=== PATIENT | female | born 1985 | race Caucasian/White ===

== ENCOUNTER 2017-09-14 20:25 | Emergency (ER) | payer BC ==
[2017-09-14 20:48] VITALS: BP 106/63
[2017-09-14] MEDS ORDERED: Ondansetron 4 MG Tab.DIS PO ONE (20:59)
--- NOTE | 2017-09-14 20:59 | EDM.PDOC ---
ED HPI GENERAL MEDICAL PROBLEM - General Chief Complaint: Abdominal Pain Stated Complaint: RT ABDOMINAL PAIN Time Seen by Provider: 09/14/17 20:51 - History of Present Illness INITIAL COMMENTS - FREE TEXT/NARRATIVE: HISTORY AND PHYSICAL: History of present illness: The patient is a 31-year-old female with no stated medical problems who presents with complaints of right-sided lower back and abdominal pain that started 2 days ago. She says very dull it's not sharp and she is able to eat or drink she has had no associated fevers. She has had no trauma to the area and she's been having normal bowel movements until today when she had 3 small episodes of loose stools. Yesterday she had urinary frequency and discomfort with urination but that has improved today. She has had a UTI when she was in the past but none since she has never had kidney stones. She says she didn't have an appetite today due to some nausea but she has not actually vomited. Review of systems: As per history of present illness and below otherwise all systems reviewed and negative. Past medical history: As per history of present illness and as reviewed below otherwise noncontributory. Surgical history: As per history of present illness and as reviewed below otherwise noncontributory. Social history: No reported history of drug or alcohol abuse. Family history: As per history of present illness and as reviewed below otherwise noncontributory. Physical exam: Gen.: Well-developed well-nourished female who is nontoxic and speaking clearly and easily in the ED. Vital signs are noted by me HEENT: Atraumatic, normocephalic,negative for conjunctival pallor or scleral icterus, mucous membranes moist, throat clear, neck supple, nontender, trachea midline. Lungs: Clear to auscultation, breath sounds equal bilaterally, chest nontender. Heart: S1S2, regular rate and rhythm no overt murmurs Abdomen: Soft, nondistended, nontender. Negative for masses or hepatosplenomegaly. Cannot elicit much pain on palpation and there is no rebound or guarding; there is a minimal amount of pain on very deep palpation in the right upper quadrant Negative for costovertebral tenderness. Pelvis: Stable nontender. Genitourinary: Deferred. Rectal: Deferred. Extremities: Atraumatic, negative for cords or calf pain. Neurovascular unremarkable. Neuro: Awake, alert, oriented. Cranial nerves II through XII unremarkable. Cerebellum unremarkable. Motor and sensory unremarkable throughout. Exam nonfocal. Diagnostics: CBC CMP amylase lipase UA UCG urine culture if indicated Therapeutics: Lilianmario I discussed with the patient all testing results and did offer imaging but we both agreed that at this point her symptoms are very mild and she would like to defer that at this time. I told her to monitor her symptoms and if they progress change or evolve that she can come back to the ER for further care. I also will refer her back to the clinic. Impression: Left-sided abdominal pain with nausea and diarrhea stable Definitive disposition and diagnosis as appropriate pending reevaluation and review of above. abdominal area Pain Score (Numeric/FACES): 5 - Related Data Allergies Allergy/AdvReac Type Severity Reaction Status Date / Time milk Allergy Mild Stomach Verified 09/14/17 20:40 Upset Home Meds: Home Meds . 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: Musculoskeletal History: Reports: Back Pain, Chronic Other Musculoskeletal History: spondyloisthesis - Infectious Disease History Infectious Disease History: Reports: Chicken Pox - Past Surgical History HEENT Surgical History: Reports: Oral Surgery Female Surgical History: Reports: Section, Cervical Conization Social & Family History - Family History Family Medical History: Noncontributory Cardiac: Reports: Hypertension Respiratory: Reports: None Psychiatric: Reports: None Endocrine/Metabolic: Reports: None - Tobacco Use Smoking Status *Q: Never Smoker Second Hand Smoke Exposure: No - Caffeine Use Caffeine Use: Reports: Coffee, Soda Other Caffeine Use: diet coke - Recreational Drug Use Recreational Drug Use: No ED ROS GENERAL - Review of Systems Review Of Systems: ROS reveals no pertinent complaints other than HPI. ED EXAM, GENERAL - Physical Exam Exam: See Below (see dictation) Course - Vital Signs Last Recorded V/S: Last Vital Signs Temp 36.7 C 09/14/17 20:45 Pulse 83 09/14/17 20:45 Resp 18 09/14/17 20:45 BP 106/63 09/14/17 20:45 Pulse Ox 98 09/14/17 20:45 - Orders/Labs/Meds Labs: Laboratory Tests 09/14/17 09/14/17 09/14/17 Range/Units 21:17 21:17 21:31 WBC 3.71 L (4.0-11.0) K/uL RBC 4.16 L (4.30-5.90) M/uL Hgb 13.1 (12.0-16.0) g/dL Hct 37.5 (36.0-46.0) % MCV 90.1 (80.0-98.0) fL MCH 31.5 (27.0-32.0) pg MCHC 34.9 (31.0-37.0) g/dL RDW Std Deviation 42.9 (28.0-62.0) fl RDW Coeff of Adrianne 13 (11.0-15.0) % Plt Count 199 (150-400) K/uL MPV 9.50 (7.40-12.00) fL Neut % (Auto) 48.7 (48.0-80.0) % Lymph % (Auto) 38.3 (16.0-40.0) % [place] % (Auto) 8.9 (0.0-15.0) % Eos % (Auto) 3.8 (0.0-7.0) % Baso % (Auto) 0.3 (0.0-1.5) % Neut # (Auto) 1.8 (1.4-5.7) K/uL Lymph # (Auto) 1.4 (0.6-2.4) K/uL [place] # (Auto) 0.3 (0.0-0.8) K/uL Eos # (Auto) 0.1 (0.0-0.7) K/uL Baso # (Auto) 0.0 (0.0-0.1) K/uL Nucleated RBC % 0.0 /100WBC Nucleated RBCs # 0 K/uL Sodium 139 (136-146) mmol/L Potassium 3.6 (3.5-5.1) mmol/L Chloride 108 (98-110) mmol/L Carbon Dioxide 23 (21-31) mmol/L BUN 11 (6.0-23.0) mg/dL Creatinine 0.7 (0.6-1.5) mg/dL Est Cr Clr Drug Dosing 112.06 mL/min Estimated GFR (MDRD) > 60.0 ml/min Glucose 112 H (60-110) mg/dL Calcium 8.5 L (8.8-10.8) mg/dL Total Bilirubin 0.6 (0.1-1.5) mg/dL AST 15 (5-40) IU/L ALT 11 (8-54) IU/L Alkaline Phosphatase 67 (40-150) Total Protein 5.9 L (6.0-8.0) g/dL Albumin 3.6 (3.5-5.0) g/dL Globulin 2.3 (2.0-3.5) g/dL Albumin/Globulin Ratio 1.6 (1.3-2.8) Amylase 35 (10-90) U/L Lipase 15 (7-80) U/L Urine Color Urine Appearance Urine pH (5.0-8.0) Ur Specific [place] (1.001-1.035) Urine Protein (NEGATIVE) mg/dL Urine Glucose (UA) (NEGATIVE) mg/dL Urine Ketones (NEGATIVE) mg/dL Urine Occult Blood (NEGATIVE) Urine Nitrite (NEGATIVE) Urine Bilirubin (NEGATIVE) Urine Urobilinogen (<2.0) EU/dL Ur Leukocyte Esterase (NEGATIVE) Urine RBC (0-2/HPF) Urine WBC (0-5/HPF) Ur Epithelial Cells (NONE-FEW) Urine Bacteria (NEGATIVE) Urine HCG, Qual NEGATIVE (NEGATIVE) 09/14/17 Range/Units 21:31 WBC (4.0-11.0) K/uL RBC (4.30-5.90) M/uL Hgb (12.0-16.0) g/dL Hct (36.0-46.0) % MCV (80.0-98.0) fL MCH (27.0-32.0) pg MCHC (31.0-37.0) g/dL RDW Std Deviation (28.0-62.0) fl RDW Coeff of Adrianne (11.0-15.0) % Plt Count (150-400) K/uL MPV (7.40-12.00) fL Neut % (Auto) (48.0-80.0) % Lymph % (Auto) (16.0-40.0) % [place] % (Auto) (0.0-15.0) % Eos % (Auto) (0.0-7.0) % Baso % (Auto) (0.0-1.5) % Neut # (Auto) (1.4-5.7) K/uL Lymph # (Auto) (0.6-2.4) K/uL [place] # (Auto) (0.0-0.8) K/uL Eos # (Auto) (0.0-0.7) K/uL Baso # (Auto) (0.0-0.1) K/uL Nucleated RBC % /100WBC Nucleated RBCs # K/uL Sodium (136-146) mmol/L Potassium (3.5-5.1) mmol/L Chloride (98-110) mmol/L Carbon Dioxide (21-31) mmol/L BUN (6.0-23.0) mg/dL Creatinine (0.6-1.5) mg/dL Est Cr Clr Drug Dosing mL/min Estimated GFR (MDRD) ml/min Glucose (60-110) mg/dL Calcium (8.8-10.8) mg/dL Total Bilirubin (0.1-1.5) mg/dL AST (5-40) IU/L ALT (8-54) IU/L Alkaline Phosphatase (40-150) Total Protein (6.0-8.0) g/dL Albumin (3.5-5.0) g/dL Globulin (2.0-3.5) g/dL Albumin/Globulin Ratio (1.3-2.8) Amylase (10-90) U/L Lipase (7-80) U/L Urine Color YELLOW Urine Appearance CLEAR Urine pH 6.0 (5.0-8.0) Ur Specific [place] 1.020 (1.001-1.035) Urine Protein NEGATIVE (NEGATIVE) mg/dL Urine Glucose (UA) NEGATIVE (NEGATIVE) mg/dL Urine Ketones NEGATIVE (NEGATIVE) mg/dL Urine Occult Blood NEGATIVE (NEGATIVE) Urine Nitrite NEGATIVE (NEGATIVE) Urine Bilirubin SMALL H (NEGATIVE) Urine Urobilinogen 2.0 H (<2.0) EU/dL Ur Leukocyte Esterase NEGATIVE (NEGATIVE) Urine RBC 1-2 (0-2/HPF) Urine WBC 0-1 (0-5/HPF) Ur Epithelial Cells FEW (NONE-FEW) Urine Bacteria FEW (NEGATIVE) Urine HCG, Qual (NEGATIVE) Meds: Medications Discontinued Medications Generic Name Dose Route Start Last Admin Trade Name Villa PRN Reason Stop Dose Admin Ondansetron HCl 4 mg 09/14/17 20:59 09/14/17 21:07 Zofran Odt PO 09/14/17 21:00 4 mg ONETIME ONE Administration Departure - Departure Time of Disposition: 22:00 Disposition: Home, Self-Care 01 Condition: Good Clinical Impression: Nausea Abdominal pain Qualifiers: Abdominal location: right upper quadrant Qualified Code(s): R10.11 - Right upper quadrant pain Diarrhea Qualifiers: Diarrhea type: unspecified type Qualified Code(s): R19.7 - Diarrhea, unspecified - Discharge Information Referrals: PCP,None [Primary Care Provider] - Forms: ED Department Discharge Additional Instructions: The following information is given to patients seen in the emergency department who are being discharged to home. This information is to outline your options for follow-up care. We provide all patients seen in our emergency department with a follow-up referral. The need for follow-up, as well as the timing and circumstances, are variable depending upon the specifics of your emergency department visit. If you don't have a primary care physician on staff, we will provide you with a referral. We always advise you to contact your personal physician following an emergency department visit to inform them of the circumstance of the visit and for follow-up with them and/or the need for any referrals to a consulting specialist. The emergency department will also refer you to a specialist when appropriate. This referral assures that you have the opportunity for followup care with a specialist. All of these measure are taken in an effort to provide you with optimal care, which includes your followup. Under all circumstances we always encourage you to contact your private physician who remains a resource for coordinating your care. When calling for followup care, please make the office aware that this follow-up is from your recent emergency room visit. If for any reason you are refused follow-up, please contact the [facility] emergency department at and ask to speak to the emergency department charge nurse. [facility] Primary care- Internal Medicine and Family [address] [address] Push fluids and avoid caffeinated products and eat bland foods for the next few days. Please call and follow-up with one of our clinic providers or your own provider in the next 1-2 days for further care and evaluation and return to ER as needed and as discussed
[2017-09-14 21:46] LABS: CHLORIDE,CL 108 mmol/L (98-110); SODIUM,NA 139 mmol/L (136-146)
== END 2017-09-14 22:16 | disposition home or self-care (01) ==
LOC: MW.ED 20:25
DX: R10.11 Right upper quadrant pain (principal); R19.7 Diarrhea, unspecified; R11.0 Nausea; Z91.011 Allergy to milk products
CPT/HCPCS: 36415; 80053; 81001; 81025; 82150; 83690; 85025; 99284; A9270

== ENCOUNTER 2018-03-19 20:00 | Emergency (ER) | payer BC ==
[2018-03-19 20:20] VITALS: BP 133/71
--- NOTE | 2018-03-19 20:20 | EDM.PDOC ---
ED HPI GENERAL MEDICAL PROBLEM - General Chief Complaint: Upper Extremity Injury/Pain Stated Complaint: SHOULDER PAIN Time Seen by Provider: 03/19/18 20:09 Source of Information: Reports: Patient History Limitations: Reports: No Limitations - History of Present Illness INITIAL COMMENTS - FREE TEXT/NARRATIVE: HISTORY AND PHYSICAL: History of present illness: Patient is a 32-year-old female who presents to the emergency room today with complaints of right shoulder pain after falling off of a stool. He is at rest her shoulder feels okay but when she attempts to lift the arm up above 45 she has pain to the anterior shoulder. She denies hitting her head or any loss of consciousness. Review of systems: As per history of present illness and below otherwise all systems reviewed and negative. Past medical history: As per history of present illness and as reviewed below otherwise noncontributory. Surgical history: As per history of present illness and as reviewed below otherwise noncontributory. Social history: No reported history of drug or alcohol abuse. Family history: As per history of present illness and as reviewed below otherwise noncontributory. Physical exam: General: Well-developed and well-nourished 32-year-old female. Alert and oriented. Nontoxic appearing and in no acute distress. HEENT: Atraumatic, normocephalic, pupils equal and reactive bilaterally, negative for conjunctival pallor or scleral icterus, mucous membranes moist, throat clear, neck supple, nontender, trachea midline. No drooling or trismus noted. No meningeal signs Lungs: Clear to auscultation, breath sounds equal bilaterally, chest nontender. Heart: S1S2, regular rate and rhythm without overt murmur Abdomen: Soft, nondistended, nontender. Negative for masses or hepatosplenomegaly. Negative for costovertebral tenderness. Pelvis: Stable nontender. Genitourinary: Deferred. Rectal: Deferred. Skin: Intact, warm, dry. No lesions or rashes noted. Extremities: Moves all extremities per self without difficulty or deficits with the exception of limited range of motion in the right shoulder. Has increased pain when lifting the arm up above 45 to the front and outward/side. She is able to rotate her wrist doing the intake can test negative for cords or calf pain (but not at a 90 degree lift). Neurovascular unremarkable. Neuro: Awake, alert, oriented. Cranial nerves II through XII unremarkable. Cerebellum unremarkable. Motor and sensory unremarkable throughout. Exam nonfocal. Notes: X-ray shows lucency in involving the proximal humeral metaphysis which may indicate a subtle fracture. We did discuss the limitations of x-ray. Her injury sounds like there is also tendon/ligament involvment. Xray results were discussed with the patient. I will place her in a shoulder immobilizer. Supportive care measures were reviewed and discussed. Would like her to see the orthopedic provider on Wednesday. Anaya for pain management. She voices understanding and is agreeable to plan of care. Diagnostics: Xray, HCGU Therapeutics: Shoulder immobiilzer, norco Impression: Right shoulder injury Plan: 1. Rest, ice and elevate the affect extremity. Wear the sling for comfort. 2. Tylenol and/or ibuprofen as needed for pain management. [place] has been prescribed for moderate to severe pain. This medication may cause drowsiness, so not take while driving or needing to be functioning outside of the house. 3. Please follow-up with the orthopedic provider next week for further evaluation and management. Return to the ED as needed and as discussed. Definitive disposition and diagnosis as appropriate pending reevaluation and review of above. Right Shoulder Pain Score (Numeric/FACES): 5 - Related Data Allergies Allergy/AdvReac Type Severity Reaction Status Date / Time milk Allergy Mild Stomach Verified 09/14/17 20:40 Upset Home Meds: Home Meds . 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: Musculoskeletal History: Reports: Back Pain, Chronic Other Musculoskeletal History: spondyloisthesis Neurological History: Reports: None Psychiatric History: Reports: None Endocrine/Metabolic History: Reports: None Hematologic History: Reports: None Immunologic History: Reports: None Oncologic (Cancer) History: Reports: None Dermatologic History: Reports: None - Infectious Disease History Infectious Disease History: Reports: Chicken Pox - Past Surgical History HEENT Surgical History: Reports: Oral Surgery Female Surgical History: Reports: Section, Cervical Conization Social & Family History - Family History Family Medical History: Noncontributory Cardiac: Reports: Hypertension Respiratory: Reports: None Psychiatric: Reports: None Endocrine/Metabolic: Reports: None - Caffeine Use Caffeine Use: Reports: Coffee, Soda Other Caffeine Use: diet coke Review of Systems - Review of Systems Review Of Systems: ROS reveals no pertinent complaints other than HPI. ED EXAM, GENERAL - Physical Exam Exam: See Below (See dictation) Course - Vital Signs Last Recorded V/S: Last Vital Signs Temp 98.3 F 03/19/18 20:19 Pulse 72 03/19/18 20:19 Resp 16 03/19/18 20:19 BP 133/71 03/19/18 20:19 Pulse Ox 100 03/19/18 20:19 - Orders/Labs/Meds Orders: Active Orders 24 hr Category Date Time Status Shoulder Comp Rt [CR] Stat Exams 03/19/18 20:11 Taken HCG QUALITATIVE,URINE [URCHEM] Stat Lab 03/19/18 20:25 Ordered DME for Discharge [COMM] Stat Oth 03/19/18 20:22 Ordered Labs: Laboratory Tests 03/19/18 Range/Units 20:25 Urine HCG, Qual NEGATIVE (NEGATIVE) Departure - Departure Time of Disposition: 21:47 Disposition: Home, Self-Care 01 Clinical Impression: Right shoulder injury Qualifiers: Encounter type: initial encounter Qualified Code(s): S49.91XA - Unspecified injury of right shoulder and upper arm, initial encounter - Discharge Information Instructions: Shoulder Pain, [id number] Referrals: PCP,None [Primary Care Provider] - Forms: ED Department Discharge Additional Instructions: The following information is given to patients seen in the emergency department who are being discharged to home. This information is to outline your options for follow-up care. We provide all patients seen in our emergency department with a follow-up referral. The need for follow-up, as well as the timing and circumstances, are variable depending upon the specifics of your emergency department visit. If you don't have a primary care physician on staff, we will provide you with a referral. We always advise you to contact your personal physician following an emergency department visit to inform them of the circumstance of the visit and for follow-up with them and/or the need for any referrals to a consulting specialist. The emergency department will also refer you to a specialist when appropriate. This referral assures that you have the opportunity for follow-up care with a specialist. All of these measure are taken in an effort to provide you with optimal care, which includes your follow-up. Under all circumstances we always encourage you to contact your private physician who remains a resource for coordinating your care. When calling for follow-up care, please make the office aware that this follow-up is from your recent emergency room visit. If for any reason you are refused follow-up, please contact the Emergency Department at and asked to speak to the emergency department charge nurse. Specialty Care - [facility] [address], [address] [place] [address] 1. Rest, ice and elevate the affect extremity. Wear the sling for comfort. 2. Tylenol and/or ibuprofen as needed for pain management. [place] has been prescribed for moderate to severe pain. This medication may cause drowsiness, so not take while driving or needing to be functioning outside of the house. 3. Please follow-up with the orthopedic provider next week for further evaluation and management. Return to the ED as needed and as discussed. - My Orders Last 24 Hours: My Active Orders 03/19/18 20:11 Shoulder Comp Rt [CR] Stat 03/19/18 20:22 DME for Discharge [COMM] Stat 03/19/18 20:25 HCG QUALITATIVE,URINE [URCHEM] Stat - Assessment/Plan Last 24 Hours: My Active Orders 03/19/18 20:11 Shoulder Comp Rt [CR] Stat 03/19/18 20:22 DME for Discharge [COMM] Stat 03/19/18 20:25 HCG QUALITATIVE,URINE [URCHEM] Stat
[2018-03-19] MEDS ORDERED: Acetaminophen/HYDROcodone 325-5 MG Tab PO ONE (21:48)
--- NOTE | 2018-03-21 14:31 | CR ---
EXAM DATE: 03/19/18 PATIENT'S AGE: 32 Patient: GENARO LINDSEY Facility: [place], [place] Site . Site : 1985 Study: XRay Shoulder Right [id number]/16/2018 9:10:11 PM Ordering Physician: Doctor Sage Final Report: HISTORY: Fall, pain. TECHNIQUE: Two views of the right shoulder. COMPARISON: No prior. FINDINGS: There is lucency involving the proximal metaphysis of the humerus suspicious for a proximal humeral fracture. Consider obtaining additional views for further evaluation and confirmation. No definite dislocation. The AC joint appears maintained. Lateral downward sloping of the acromion. Type 2 acromial morphology. No abnormality within the included right lung. IMPRESSION: Lucency involving the proximal humeral metaphysis may indicate the presence of a subtle fracture. Recommend obtaining additional views for further evaluation and confirmation. Dictated by Vega Lo MD @ 03/19/2018 9:37:10 PM Dictated by: Vega Lo MD @ 03/19/2018 21:37:20 (Electronic Signature) Report Signed by Proxy. [facility] CENTERZhanna
== END 2018-03-19 22:15 | disposition home or self-care (01) ==
LOC: MW.ED 20:00
DX: S49.91XA Unspecified injury of right shoulder and upper arm, initial encounter (principal); Z91.011 Allergy to milk products; W08.XXXA Fall from other furniture, initial encounter
CPT/HCPCS: 73030; 81025; 99284; A9270

== ENCOUNTER 2019-06-23 07:40 | Day surgery (SDC) | payer BC ==
[~2019-06-23 07:40] MED LIST: Lactated Ringers 1,000 ML IV SCH; ceFAZolin 1 GM in Premix Bag 1 BAG IV ONE
--- NOTE | 2019-06-23 08:29 | PCM.PREANE ---
Preanesthetic Assessment - Anesthesia/Transfusion/Family Hx Anesthesia History: Prior Anesthesia Reaction Type of Anesthesia Reaction: Excessive Nausea/Vomiting Family History of Anesthesia Reaction: No Transfusion History: No Prior Transfusion(s) - Review of Systems General: No Symptoms Pulmonary: No Symptoms Cardiovascular: No Symptoms Gastrointestinal: No Symptoms Neurological: No Symptoms Other: Reports: None - Physical Assessment Vital Signs: Last Vital Signs Temp 98.4 F 06/23/19 07:55 Pulse 87 06/23/19 07:55 Resp 16 06/23/19 07:55 BP 103/68 06/23/19 07:55 Pulse Ox 98 06/23/19 07:55 Height: 5 ft Weight: 60.328 kg ASA Class: 1 Mental Status: Alert & Oriented x3 Airway Class: Mallampati = 2 Dentition: Reports: Normal Dentition ROM/Head Extension: Full Lungs: Clear to Auscultation, Normal Respiratory Effort Cardiovascular: Regular Rate, Regular Rhythm - Lab Values: Laboratory Last Values Urine HCG, Qual NEGATIVE (NEGATIVE) 06/23/19 07:50 - Allergies Allergies/Adverse Reactions: Allergies Allergy/AdvReac Type Severity Reaction Status Date / Time milk Allergy Mild Stomach Verified 06/21/19 11:22 Upset - Blood Blood Available: No - Anesthesia Plan Pre-Op Medication Ordered: None - Acknowledgements Anesthesia Type Planned: General Anesthesia Pt an Appropriate Candidate for the Planned Anesthesia: Yes Alternatives and Risks of Anesthesia Discussed w Pt/Guardian: Yes Pt/Guardian Understands and Agrees with Anesthesia Plan: Yes Additional Comments: PMH: single episode of syncopy no recurrances, activity limited only by foot pain- no dyspnea or chest pain with activitiey PLAN: ga/lma- multiple antiemetics PreAnesthesia Questionnaire HEENT History: Reports: Other (See Below) Other HEENT History: wears glasses/contacts Cardiovascular History: Reports: None Respiratory History: Reports: None Gastrointestinal History: Reports: Hemorrhoids, Other (See Below) Other Gastrointestinal History: occasional heartburn with Genitourinary History: Reports: None [employer]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: Musculoskeletal History: Reports: Fracture Other Musculoskeletal History: hx of fx right shoulder or humerus Neurological History: Reports: None Psychiatric History: Reports: None Endocrine/Metabolic History: Reports: None Hematologic History: Reports: None Immunologic History: Reports: None Oncologic (Cancer) History: Reports: None Dermatologic History: Reports: None - Infectious Disease History Infectious Disease History: Reports: Chicken Pox - Past Surgical History Head Surgeries/Procedures: Reports: None HEENT Surgical History: Reports: Oral Surgery Other HEENT Surgeries/Procedures: wisdom teeth removed Female Surgical History: Reports: Breast Reduction, Section, Other ( See Below) Other Female Surgeries/Procedures: Cervical laser, x2 - SUBSTANCE USE Smoking Status *Q: Never Smoker Recreational Drug Use History: No - HOME MEDS Home Medications: Home Meds . [No Known Home Meds] 09/14/17 [History] - CURRENT (IN HOUSE) MEDS Current Meds: Current Medications Lactated Ringer's (Ringers, Lactated) 1,000 mls @ 125 mls/hr IV ASDIRECTED YVON Discontinued Medications Cefazolin Sodium/Dextrose 1 gm (/ Premix) 50 mls @ 100 mls/hr IV ONETIME ONE Stop: 06/23/19 07:29
[2019-06-23] MEDS ORDERED: Propofol 200 MG/20 ML SDV ONE (08:41)
[2019-06-23] MEDS ORDERED: fentaNYL 100 MCG/2 ML SDV ONE ×2 (08:41→10:49)
[2019-06-23] MEDS ORDERED: Midazolam 1 MG/ML 2 ML SDV ONE (08:41)
[2019-06-23] MEDS ORDERED: Lidocaine 2% 5 ML SDV ONE (08:41)
[2019-06-23] MEDS ORDERED: ceFAZolin 1 GM Vial ONE ×2 (08:48→14:16)
[2019-06-23] MEDS ORDERED: Bupivacaine 0.5% 30 ML SDV ONE (08:48)
[2019-06-23] MEDS ORDERED: Lidocaine 1% 20 ML MDV ONE ×2 (08:48→14:16)
[2019-06-23] MEDS ORDERED: Dexamethasone 4 MG/ML 5 ML MDV ONE (09:46)
[2019-06-23] MEDS ORDERED: Ondansetron 4 MG/2 ML SDV ONE (09:46)
--- NOTE | 2019-06-23 11:13 | PN ---
IDENTIFICATION: The patient is a 33-year-old female. SURGEON: Guicho Ordoñez DPM. DATE OF SURGERY: June 23, 2019. PLANNED PROCEDURES: 1. Lapidus fusion with bunionectomy, left foot. 2. Proximal interphalangeal joint arthroplasty with temporary K-wire fixation, 2nd toe, left foot. 3. Capsulotomy, 2nd metatarsophalangeal joint, left foot. 4. Proximal Jc osteotomy, hallux, left foot. ACTIVE PROBLEMS: 1. Hallux abductovalgus. 2. Hammertoe 2nd toe of left foot. ALLERGIES: No known drug allergies. The patient is lactose intolerant. PAST MEDICAL HISTORY: History of bilateral otitis media, history of episodic lightheadedness, history of excessive cerumen in left ear canal, history of fluid collection of middle ear, history of fracture of right humerus, history of ear pain, history of hemorrhoids, history of paranasal sinus pain, history of syncope, history of upper respiratory infection, history of pelvic pain and , history of possible , history of sinusitis acute maxillary, history of spondylolisthesis, history of thyroid dysfunction. SURGICAL HISTORY: Includes history of breast reduction, history of . LABORATORY DATA: Sodium 142, potassium 3.7, chloride 104, carbon dioxide 26.7, glucose random 82, BUN 11, creatinine 0.9, calcium was 10.1, INR 1.00. White blood cell 5.83, red blood cell 4.72, hemoglobin 15.1, hematocrit 43.3, platelets 241. EKG and chest x-ray were noted by the clearing doctor, Dr. Mason who has been done in the spring and so those have not been repeated for the preop clearance. The patient is cleared for surgery by Dr. Jennfier Mason. Risks and benefits of surgery have been discussed with the patient. All patient questions have been asked and answered. No guarantees have been expressed or implied. VIOLET / ALYSSA /[id number]
[2019-06-23] MEDS ORDERED: HYDROmorphone 2 MG/ML Syringe ONE (11:22)
[2019-06-23] MEDS ORDERED: Sodium Chloride 0.9% 20 ML ONE (11:22)
[2019-06-23] MEDS ORDERED: fentaNYL 100 MCG/2 ML SDV IVPUSH PRN (12:56)
[2019-06-23] MEDS ORDERED: 50% Dextrose in Water 50 ML Syringe IVPUSH PRN (12:56)
[2019-06-23] MEDS ORDERED: EPINEPHrine 1:10,000 1 MG/10 ML Syringe IVPUSH PRN (12:56)
[2019-06-23] MEDS ORDERED: Albuterol 0.083% 2.5 MG/3 ML Neb Soln NEB PRN (12:56)
[2019-06-23] MEDS ORDERED: Naloxone 0.4 MG/ML Syringe IVPUSH PRN (12:56)
[2019-06-23] MEDS ORDERED: Atropine 0.1 MG/ML 10 ML Syringe IVPUSH PRN ×2 (12:56)
[2019-06-23] MEDS ORDERED: Ketorolac 30 MG/ML SDV ONE (13:49)
--- NOTE | 2019-06-23 14:20 | PCM.OPNOTE ---
- General Post-Op/Procedure Note Date of Surgery/Procedure: 06/23/19 Operative Procedure(s): 1. Lapidus fusion with bunionectomy left foot. 2. capsulotomy second metatarsal phalangeal joint left foot. 3. PIPJ arthroplasty with temporary K-wire fixation second toe left foot Findings: consistent with diagnoses Pre Op Diagnosis: 1. hallux abducto valgus with bunion deformity left foot. 2. capsulitis second metatarsal phalangeal joint left foot. 3. hammertoe contracture second toe left foot Post-Op Diagnosis: 1. hallux abducto valgus with bunion deformity left foot. 2. capsulitis second metatarsal phalangeal joint left foot. 3. hammertoe contracture second toe left foot Anesthesia Technique: General LMA Primary Surgeon: Guicho Ordoñez EBL in mLs: 25 Complications: none Condition: Good Free Text/Narrative:: 14 ml 0.5 % marcaine plain injected at end of surgery materials:
--- NOTE | 2019-06-23 15:52 | PCM.POSTAN ---
POST ANESTHESIA ASSESSMENT - MENTAL STATUS Mental Status: Alert, Oriented - VITAL SIGNS Vital Signs: Last Vital Signs Temp 99.9 F 06/23/19 14:10 Pulse 108 H 06/23/19 15:25 Resp 12 06/23/19 15:25 BP 118/62 06/23/19 15:25 Pulse Ox 97 06/23/19 15:25 - RESPIRATORY Respiratory Status: Respiratory Rate WNL, Airway Patent, O2 Saturation Stable - CARDIOVASCULAR CV Status: Pulse Rate WNL, Blood Pressure Stable - GASTROINTESTINAL GI Status: No Symptoms - POST OP HYDRATION Hydration Status: Adequate & Stable
--- NOTE | 2019-06-23 15:52 | PCM48HPAN ---
Post Anesthesia Note - EVALUATION WITHIN 48HRS OF ANESTHETIC Vital Signs in Normal Range: Yes Patient Participated in Evaluation: Yes Respiratory Function Stable: Yes Airway Patent: Yes Cardiovascular Function Stable: Yes Hydration Status Stable: Yes Pain Control Satisfactory: Yes Nausea and Vomiting Control Satisfactory: Yes Mental Status Recovered: Yes Vital Signs: Last Vital Signs Temp 99.9 F 06/23/19 14:10 Pulse 108 H 06/23/19 15:25 Resp 12 06/23/19 15:25 BP 118/62 06/23/19 15:25 Pulse Ox 97 06/23/19 15:25
[2019-06-23 16:21] VITALS: BP 120/69; PULSE 119
--- NOTE | 2019-06-24 01:54 | OR ---
SURGEON: Guicho Ordoñez DPM DATE OF PROCEDURE: 06/23/2019 PRIMARY SURGEON: Guicho Ordoñez DPM. PREOPERATIVE DIAGNOSES: 1. Hallux abducto valgus, left foot, with bunion deformity. 2. Capsulitis, second metatarsophalangeal joint, left foot. 3. Hammertoe contracture, second toe, left foot. POSTOPERATIVE DIAGNOSES: 1. Hallux abducto valgus, left foot, with bunion deformity. 2. Capsulitis, second metatarsophalangeal joint, left foot. 3. Hammertoe contracture, second toe, left foot. PROCEDURES: 1. Lapidus fusion with bunionectomy, left foot. 2. Capsulotomy of the second metatarsophalangeal joint, left foot. 3. Proximal interphalangeal joint arthroplasty, second toe, left foot, with temporary K-wire fixation. ANESTHESIA: General. HEMOSTASIS: Above-ankle pneumatic tourniquet inflated to a pressure of 250 mmHg after Esmarch bandage exsanguination. Tourniquet time was a total of 3 hours in 2 parts. Tourniquet was initially inflated for 2 hours, then deflated for half an hour, then inflated for 1 hour and deflated again. ESTIMATED BLOOD LOSS: 25 mL. PATHOLOGY: None. CONDITION: The patient tolerated the procedures and the anesthesia well with no complications noted, and prompt hyperemic response was noted to all the digits of her left foot following deflation of the tourniquet for the final time. MATERIALS: 3-0 Vicryl; 4-0 Vicryl; 4-0 Stratafix; Jose Luis Lapidus CP plate for the left foot x1; [place] CP screw 4.1 mm T10 screw with a length of 34 mm, this was a partially threaded screw; [place] 3.5 mm x 16 mm nonlocking T10 screw x2; [place] 3.5 mm x 14 mm locking screw x1; Jose Luis 3.5 x 16 mm locking screw x1; Vitoss beta-tricalcium phosphate bone filler 1 unit. INJECTABLES: A total of 14 mL of 0.5% Marcaine plain was injected at the end of the procedures to the patient's left foot. JUSTIFICATION FOR THE PROCEDURE: The patient has long-standing pain in the left foot due to hammertoe contracture and corresponding capsulitis of the second metatarsophalangeal joint, which is exacerbated by hallux abducto valgus with a large intermetatarsal angle of 17.5 degrees and also has a bunion deformity as well corresponding to the large first intermetatarsal angle. Conservative measures have been exhausted including multiple attempts at shoe gear that could accommodate the patient's deformity. The patient has elected for surgery today. We have had detailed discussions including in her preoperative visit yesterday in my office. All possible procedures have been discussed with the patient. The patient was consented for the procedures performed and additionally was consented for proximal Jc osteotomy in case that would have been necessary; however, that procedure was not performed as it was not necessary to achieve the correction desired. The patient has elected for surgery today, and understood the risks and benefits of the surgery as well as the long recovery time/process to many other procedures as this is a fusion of the medial cuneiform and first metatarsal joint in the patient's mid foot, as well as the other procedures. All the patient's questions were answered, no guarantees have been given or implied, and complications including numbness and nonunion and postoperative infection and possible breakage of hardware including a K-wire which is planned for the second toe, have all been discussed with the patient and her present. PROCEDURES IN DETAIL: Procedure #1, Lapidus fusion with bunionectomy, left foot: The patient was brought to the operating room and placed on the operating table in a supine position, at which time anesthesia was induced, above-ankle pneumatic tourniquet was applied, and aseptic scrub and drape was performed about the patient's left lower extremity. Preoperative AP and lateral views were taken of the patient's left foot, and incision planning was performed with a marking pen guided by the preoperative x-rays with planned incision over the dorsomedial midfoot and over the bunion area as well as over the second metatarsophalangeal joint and toe. The Esmarch bandage was used for exsanguination of the left lower extremity and the tourniquet was inflated to a pressure of 250 mmHg. The surgery began with incision over the medial cuneiform and first metatarsal area, and it was deepened through the superficial-deep layers of skin. A blunt dissection was utilized wherever possible. The patient had above average vasculature present and many small bleeders were bovied as needed. The medial dorsal cutaneous nerve was identified and retracted medially out of the path of the dissection. The extensor hallucis longus tendon was also identified and retracted laterally away from the path of dissection. The incision was made over the first metatarsal head bunion area. This was a second incision, which was then joined to the first incision given the requirements of the plate being used and due to the short length of the patient's first metatarsal bone. Once the bone was exposed over the first metatarsal-cuneiform joint, a Weinraub retractor was used to distract the joint. This involved drilling 2 K-wires, 1 on the medial cuneiform dorsal aspect and 1 on the first metatarsal approaching from the dorsal aspect, and this was then placed into the Weinraub retractor with K-wire on each side, and the Weinraub retractor was used to open up and distract the joint, this is the medial cuneiform-first metatarsal joint of the left foot. TPS saw blade was used to resect a thin layer of cartilage exposing the bone at the base of the first metatarsal, the cut was made perpendicular to the shaft of the first metatarsal. The blade TPS saw was used on the distal aspect of the medial cuneiform to remove the cartilage from the midportion over to the lateral edge of the medial cuneiform and a bone curette was used to curette the remaining cartilage on the medial aspect of the medial cuneiform at its articulation with the first metatarsal. Flushing and re-inspection was done several times. All remnants of cartilage on either side of the joint were identified and removed with a combination of curette, osteotome, and TPS saw. Excellent bone bleeding was noted, and to enhance bleeding even further in the bone, the articulating portions of the 2 bones were fenestrated using a 0.045 K- wire and drill. The Weinraub retractor was then removed including the K-wires that held it, and another K-wire was then used to temporarily fixate the bones with plantar flexion of the first metatarsal being slightly increased and closure of the first metatarsal angle. As this was held in place, a second K- wire was used for further fixation to achieve a second point of fixation. Intraoperative fluoroscopy was used as necessary to superior court judge that there was an excellent temporary correction of the first intermetatarsal angle. The bunion was removed with an inverted L capsulotomy over the bunion deformity and TPS saw was used to remove the bunion just medial to the sagittal groove on the first metatarsal head. Attention was then redirected to the medial cuneiform-first metatarsal joint of the left foot and the [employer] template was used to apply a temporary K-wire at the site of the lag screw. This site was then reamed and the actual plate to be used was then placed over the site. Temporary olive wire was used for fixation in the medial cuneiform, and nonlocking screws were placed on the distal aspect of the plate, 1 nonlocking screw and 1 locking screw. The lag screw was then placed after drilling in all cases and measuring. The lag screw was measured and placed achieving good bone purchase, and prior to completing the insertion of that screw, the temporary wires were all removed and this allowed for final compression to be achieved by the lag screw in the desired position. Excellent compression was noted. I should also note that the Vitoss beta-tricalcium phosphate bone product was inserted prior to compression of the joint and prior to releasing the Weinraub retractor. This was then supplemented with additional Vitoss bone substitute and the proximal plate holes for the plate fixation were then applied, 1 locking, 1 nonlocking. X-rays confirmed excellent fixation and excellent compression across the joint and excellent reduction of the first intermetatarsal angle. The tourniquet having reached its 2-hour limit was deflated and surgery continued with the tourniquet deflated over the next 30 minutes and the tourniquet was reinflated for 1 hour after this. The attention was then directed to the second procedure. Second procedure is capsulotomy of the second metatarsophalangeal joint of the left foot. Using the planned incision line made with a marking pen prior to beginning surgery over the second ray, a dorsal linear incision was made from just proximal to the second metatarsal head, extending across the proximal interphalangeal joint of the second toe over the middle phalanx. This was deepened using a combination of sharp and blunt dissection. The extensor tendon was identified and protected, but freed on the plantar aspect of the tendon along the course over the proximal phalanx. The tendon was then cut with a Z-plasty approach and tagged, retracted out of the way both proximally and distally. This revealed the second metatarsophalangeal joint, and a small McGlamry elevator was then used to perform the capsulotomy freeing adhesions within the joint and allowing the proximal phalanx of the second toe to be released into a flat linear position instead of the cocked-up position it had been restricted to previously. Having completed the capsulotomy, attention was directed to procedure #3. Procedure #3, proximal interphalangeal joint arthroplasty of the second toe, left foot, with temporary K-wire fixation: Utilizing the incision made from procedure #2, the head of the proximal phalanx was isolated. Ligamentous attachments were using a Hidalgo blade and the head of the proximal phalanx was grasped with a small towel clamp. The underside was protected with a Hohmann elevator, mini Hohmann and TPS saw was used to remove the head of the proximal phalanx of the second toe. A 0.045 K-wire was then placed running from proximal to distal through the middle and distal phalanges, exiting the distal tuft of the toe, and it was then retrograded proximally through the remaining portion of the proximal phalanx and into the second metatarsal. The wire at the distal end was then bent and cut, and capped with a Jurgan ball. The tendon was then reapproximated using 4-0 Vicryl suture under physiologic tension, and closure of the first procedure incision as well as the second and third procedure incision site was then started. A medial capsulorrhaphy was performed to tighten the medial capsule during the closure over the resected bunion area of the first metatarsal head. This allowed partial straightening of the great toe begetting the need for consideration of the proximal Jc osteotomy, which was not performed. Closure of the tissues was done with 3-0 and 4-0 Vicryl suture, deep tissue with 3-0 and subcutaneous level with 4-0 Vicryl suture, and both skin incisions were closed with 4-0 Stratafix suture. The tourniquet was deflated once it reached the 1 hour limit, closure was completed shortly thereafter, and the 14 mL of 0.5% Marcaine plain was infiltrated over the surgical sites. Incision sites were covered with Betadine-soaked Xeroform gauze, followed by fluff gauze and secured with Kerlix roll. The lower extremity was then covered with a stockinette followed by cast padding from mid calf down and a below-knee fiberglass cast was applied. In the recovery room, the cast was bivalved and secured with 2 Chava bandages to prevent any excessive buildup of pressure from any swelling. The patient tolerated the procedure and the anesthesia well, all procedures well, and a prompt hyperemic response upon deflation of the tourniquet to all digits of the left foot both times, and was transferred from the operating room to the recovery room with vital signs stable and vascular status intact. The patient has been provided with written and oral instructions, and has my cellphone should there be any need, and we do plan to see the patient in my office no later than 3 days from now on Wednesday, but as early as tomorrow depending on how she handles the pain and discomfort that is sure to follow tonight. The patient and her have my cellphone and will be in touch on a daily basis for the next several days to ensure that the patient is doing well. The patient already has a shower bag to keep the dressings clean, a knee scooter, crutches, and has been given instructions to remain strictly nonweightbearing. The patient has medication for both pain and nausea. VIOLET / ALYSSA /[id number]
== END 2019-06-23 16:15 | disposition home or self-care (01) ==
LOC: MW.SDS 07:40
PROVIDERS: ATTEND Podiatrist Foot & Ankle Surgery
DX: M20.12 Hallux valgus (acquired), left foot (principal); M21.612 Bunion of left foot; M20.42 Other hammer toe(s) (acquired), left foot; M77.52 Other enthesopathy of left foot and ankle; Z91.011 Allergy to milk products
CPT/HCPCS: 28270; 28285; 28297; 81025; J0131; J0690; J1100; J1170; J1885; J2001; J2250; J2405; J2704; J3010; J3490; J7120